=== PATIENT | male | born 1990 | race Two or more races ===

== ENCOUNTER 2023-07-11 21:02 | Emergency (ER) | payer MEDICAID, OTHER ==
[~2023-07-11] VITALS: Ht 175.3 cm; Wt 110.0 kg
[2023-07-11 21:40] VITALS: BP 124/76; PULSE 110; RESP 17; O2SAT 99
[2023-07-12] MEDS ORDERED: AZITTAB PO (03:29)
[2023-07-12] MEDS ORDERED: PRED20TA2 PO (03:29)
[2023-07-12] MEDS ORDERED: ALBUAER3 IN (03:29)
== END 2023-07-11 22:23 | disposition left against medical advice (07) ==
LOC: EDBD 21:02 → ER 21:02
DX: R69 Illness, unspecified (principal); Z53.21 Procedure and treatment not carried out due to patient leaving prior to being seen by health care provider

== ENCOUNTER 2023-07-12 02:40 | Emergency (ER) | payer MEDICAID ==
[~2023-07-12] VITALS: Ht 180.3 cm; Wt 97.2 kg
[2023-07-12] MEDS ORDERED: PRED20TA2 PO (03:29)
[2023-07-12] MEDS ORDERED: ALBUAER3 IN (03:29)
[2023-07-12] MEDS ORDERED: AZITTAB PO (03:29)
[2023-07-12] MEDS ORDERED: IPRATROPIUM BROM 0.5 MG/2.5ML INH SOL NEB ONE (03:30)
[2023-07-12] MEDS ORDERED: ALBUTEROL SULF 2.5 MG/0.5ML(0.5%) NEB SOLN NEB ONE (03:30)
[2023-07-12] MEDS ORDERED: DexAMETHasone SOD PHOS 10MG/1ML VIAL INJ IM ONE (03:30)
[2023-07-12 04:03] VITALS: BP 122/78; PULSE 88; RESP 14; TEMP 97.6; O2SAT 96
== END 2023-07-12 04:08 | disposition home or self-care (01) ==
LOC: ER 02:40
DX: J20.9 Acute bronchitis, unspecified (principal); R50.9 Fever, unspecified
CPT/HCPCS: 94640; 96372; 99283; J1100; J7644

== ENCOUNTER 2023-10-06 18:30 | Emergency (ER) | payer MEDICAID ==
[~2023-10-06] VITALS: Ht 175.3 cm; Wt 100.6 kg
[~2023-10-06 18:30] MED LIST: ALBUAER3 IN; AZITTAB PO; PRED20TA2 PO
[2023-10-06 18:40] VITALS: BP 114/77; PULSE 59; RESP 18; O2SAT 99
[2023-10-06 19:19] LABS: Basophils # (auto) 0.1 10 ^3/uL (0-0.2); Basophils % (auto) 0.6 % (0.0-2.0); Eosinophils # (auto) 0 10 ^3/uL (0-0.8); Eosinophils % (auto) 0.3 % (0.0-7.0); Hematocrit 43.7 % (41.0-53.0); Hemoglobin 14.5 g/dL (13.5-17.5); Lymphocytes # (auto) 2.7 10 ^3/uL (0.4-5.4); Lymphocytes % (auto) 28.2 % (10.0-50.0); Mean Corpuscular Hgb Conc. 33.2 g/dL (32.0-36.0); Mean Corpuscular Volume 93.6 fL (80.0-100.0); Monocytes # (auto) 0.6 10 ^3/uL (0-1.3); Monocytes % (auto) 6.6 % (0.0-12.0); Neutrophils # (auto) 6.2 10 ^3/uL (1.6-8.6); Neutrophils % (auto) 64.3 % (37.0-80.0); Red Blood Cells 4.67 10^6/uL (4.5-5.90); Red Cell Distribution Width 13.2 % (11.8-14.3); White Blood Cell 9.6 10^3/uL (4.4-10.8)
[2023-10-06] MEDS ORDERED: MAALOX PLUS or MAALOX 30 ML PO ONE (19:30)
[2023-10-06] MEDS ORDERED: PANTOPRAZOLE 40 MG/10 ML VIAL INJ IV ONE (19:30)
[2023-10-06 19:58] LABS: Alanine Aminotransferase 12 U/L (7-40); Alkaline Phosphatase 88 U/L (46-116); Anion Gap 10 (5-15); Aspartate Aminotransferase 17 U/L (13-40); BUN/Creatinine Ratio 6.5 (10.0-20.0); Blood Urea Nitrogen 6 mg/dL (9-23); Calcium 9.3 mg/dL (8.5-10.1); Carbon Dioxide 28 mmol/L (20-30); Chloride 104 mmol/L (98-107); Glucose 74 mg/dL (74-106); Potassium 3.7 mmol/L (3.5-5.1); Sodium 142 mmol/L (136-145)
[2023-10-06 19:59] LABS: Albumin 4.8 g/dL (3.2-4.8); Bilirubin, Total 1.2 mg/dL (0.2-1.0); Total Protein 7.3 g/dL (5.7-8.2)
[2023-10-06] MEDS ORDERED: FAMO20TA10 PO (21:37)
== END 2023-10-06 22:16 | disposition home or self-care (01) ==
LOC: ER 18:30
DX: K29.00 Acute gastritis without bleeding (principal); F15.90 Other stimulant use, unspecified, uncomplicated; Z79.899 Other long term (current) drug therapy
CPT/HCPCS: 36415; 74176; 80053; 85025

== ENCOUNTER 2023-10-15 16:10 | Emergency (ER) | payer MEDICAID ==
[~2023-10-15] VITALS: Ht 177.8 cm; Wt 104.3 kg
[~2023-10-15 16:10] MED LIST changes: +FAMO20TA10 PO
[2023-10-15 16:15] VITALS: BP 100/67; PULSE 69; RESP 18; O2SAT 98
== END 2023-10-15 16:48 | disposition left against medical advice (07) ==
LOC: ER 16:10
DX: R22.40 Localized swelling, mass and lump, unspecified lower limb (principal); Z53.21 Procedure and treatment not carried out due to patient leaving prior to being seen by health care provider

== ENCOUNTER 2023-10-16 03:09 | Emergency (ER) | payer MEDICAID | END 2023-10-16 04:18 | disposition left against medical advice (07) | LOC: ER 03:09 | DX: R22.43 Localized swelling, mass and lump, lower limb, bilateral (principal); Z53.21 Procedure and treatment not carried out due to patient leaving prior to being seen by health care provider ==